=== PATIENT | male | born 1990 | race Caucasian/White ===

== ENCOUNTER 2021-06-21 10:24 | Emergency (ER) | payer OTHER ==
[~2021-06-21] VITALS: Ht 170.2 cm; Wt 72.6 kg
[2021-06-21 10:27] VITALS: BP 105/72
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
--- NOTE | 2021-06-21 11:04 | NUR ---
PATIENT AMBULATED TO BED 3.
--- NOTE | 2021-06-21 11:20 | NUR ---
LAC TRAY SET UP AT BED SIDE AND ERMD NOTIFIED.
--- NOTE | 2021-06-21 11:21 | NUR ---
PT LAC SOAKED IN WARM WATER AND BETADINE.
[2021-06-21] MEDS ORDERED: LIDOCAINE MPF 1% 5 ML ONE (11:48)
[2021-06-21] MEDS ORDERED: LIDOCAINE MPF 1% 10 MG/ML VIAL INJ ONE (11:50)
--- NOTE | 2021-06-21 11:50 | NUR ---
Said bedside for laceration repair.
[2021-06-21] MEDS ORDERED: IBUP-2213 PO (12:13)
--- NOTE | 2021-06-21 12:30 | NUR ---
PATIENT LAC DRESSED WITH NON ADHERENT GAUZE AND WRAPPED WITH 3 INCH GAUZE ROLL AND 1 INCH TORO WRAP. CMS WITHIN NORMAL LIMITS. RN NOTIFIED.
--- NOTE | 2021-06-21 12:33 | NUR ---
Patient discharged with v/s stable. Written and verbal after care instructions about laceration care given and explained. Patient alert, oriented and verbalized understanding of instructions. Ambulatory with steady gait. All questions addressed prior to discharge. ID band removed. Patient advised to follow up with PMD. Rx of Ibuprofen 600mg given. Patient educated on indication of medication including possible reaction and side effects. Opportunity to ask questions provided and answered.
== END 2021-06-21 12:33 | disposition home or self-care (01) ==
LOC: MED 10:24
DX: S61.211A Laceration without foreign body of left index finger without damage to nail, initial encounter (principal); W26.0XXA Contact with knife, initial encounter; Y93.89 Activity, other specified; Y92.89 Other specified places as the place of occurrence of the external cause; Y99.8 Other external cause status
CPT/HCPCS: 12001; 90715; 99283; J2001